=== PATIENT | male | born 1950 | race Hispanic/Latino ===

== ENCOUNTER 2020-10-24 12:59 | Inpatient (IN) | payer MEDICARE ==
[2020-10-24 14:24] LABS: #Lymphocytes 0.7 thou/uL (1.20-3.40); #Monocytes 0.5 thou/uL (0.11-0.59); #Neutrophils 5.1 thou/uL (1.40-6.50); %Basophils 0.6 % (0.0-1.0); %Eosinophils 0.4 % (0.0-10.0); %Lymphocytes 11.3 % (21.0-51.0); %Neutrophils 79.7 % (42.0-75.0); Hemoglobin 12.5 g/dL (14.0-18.0); Mean Corpuscular HGB CONC 33.9 g/dL (32.0-36.0); Mean Corpuscular Hemoglobin 32.8 pg (27.0-31.0); Mean Corpuscular Volume 96.8 fL (78.0-98.0); Mean Platelet Volume 6.3 fL (7.4-10.4); Platelet Count 321 thou/uL (130-400); Red Blood Cell (RBC) Count 3.82 mill/uL (4.70-6.10); White Blood Cell (WBC) Count 6.4 thou/uL (4.8-10.8)
[2020-10-24 14:45] LABS: ALT (SGPT) 16 U/L (8-55); AST (SGOT) 57 U/L (5-34); Albumin 4.6 g/dL (3.4-4.8); Alkaline Phosphatase 80 U/L (40-110); Anion Gap 16 mmol/L (10-20); BUN (Urea Nitrogen) 20 mg/dL (8.4-25.7); Bilirubin, Total 0.5 mg/dL (0.2-1.2); Calc. Creatinine Clearance 0 mL/min (70-130); Calcium 9.7 mg/dL (7.8-10.44); Carbon Dioxide 21 mmol/L (23-31); Chloride 94 mmol/L (98-107); Globulin 2.8 g/dL (2.4-3.5); Glucose 109 mg/dL (80-115); Potassium 5.1 mmol/L (3.5-5.1); Protein, Total 7.4 g/dL (5.8-8.1); Sodium 126 mmol/L (136-145)
[2020-10-24] MEDS ORDERED: HYDROcodone/Acetaminophen 5/325 mg Tablet PO PRN (16:05)
[2020-10-24] MEDS ORDERED: Senokot S 8.6-50 MG TAB PO PRN (16:05)
[2020-10-24 23:55] LABS: SARS-CoV-2 PCR by NAA Not Detected (NotDetected)
[2020-10-25] MEDS ORDERED: Potassium Chloride 20 MEQ TAB PO SCH (00:15)
[2020-10-25] MEDS: Sodium Chloride 0.9% 1,000 ML IV SCH ×2 (00:57→14:41)
[2020-10-25 06:20] LABS: #Lymphocytes 0.7 thou/uL (1.20-3.40); #Monocytes 0.6 thou/uL (0.11-0.59); %Basophils 0.3 % (0.0-1.0); %Eosinophils 0.1 % (0.0-10.0); %Lymphocytes 10.8 % (21.0-51.0); %Monocytes 9.8 % (0.0-10.0); Hemoglobin 12.5 g/dL (14.0-18.0); Mean Corpuscular HGB CONC 34.9 g/dL (32.0-36.0); Mean Corpuscular Hemoglobin 34.1 pg (27.0-31.0); Mean Corpuscular Volume 97.8 fL (78.0-98.0); Mean Platelet Volume 6.6 fL (7.4-10.4); Platelet Count 276 thou/uL (130-400); RBC Distribution Width 12.2 % (11.5-14.5); Red Blood Cell (RBC) Count 3.67 mill/uL (4.70-6.10); White Blood Cell (WBC) Count 6.3 thou/uL (4.8-10.8)
[2020-10-25 06:27] LABS: Bacteria/HPF None Seen HPF (None Seen); Bilirubin Negative (Negative); Blood, Urine Negative (Negative); Clarity Clear (Clear); Glucose, Urine (Dipstick) Normal (Negative); Ketone, Urine Trace mg/dL (Negative); Leukocyte Negative Leu/uL (Negative); Nitrite Negative (Negative); Protein, Urine (Dipstick) Negative (Neg-Trace); RBC/HPF 0-3 HPF (0-3); Specific Gravity, Urine 1.008 (1.002-1.036); Squamous Epithelial None Seen HPF (0-3); Urobilinogen Normal mg/dL (Less than 2); WBC/HPF None Seen HPF (0-3); pH, Urine 6.5 (5.0-9.0)
[2020-10-25 06:30] LABS: Urine Culture Reflex No No
[2020-10-25 06:51] LABS: ALT (SGPT) 50 U/L (8-55); AST (SGOT) 44 U/L (5-34); Albumin 4.2 g/dL (3.4-4.8); Alkaline Phosphatase 73 U/L (40-110); Anion Gap 16 mmol/L (10-20); BUN (Urea Nitrogen) 15 mg/dL (8.4-25.7); Bilirubin, Total 0.4 mg/dL (0.2-1.2); Calc. Creatinine Clearance 82 mL/min (70-130); Calcium 9.4 mg/dL (7.8-10.44); Carbon Dioxide 16 mmol/L (23-31); Chloride 104 mmol/L (98-107); Globulin 2.8 g/dL (2.4-3.5); Glucose 98 mg/dL (80-115); Potassium 4.6 mmol/L (3.5-5.1); Sodium 131 mmol/L (136-145)
[2020-10-25] MEDS: guaiFENesin ER 600 MG TAB PO SCH ×2 (11:11→21:42)
[2020-10-25] MEDS: Enoxaparin Sodium 40 MG/0.4 ML SYRINGE SC SCH (11:11)
[2020-10-25] MEDS: Entacapone 200 mg Tablet PO SCH ×3 (14:41→21:42)
[2020-10-25] MEDS: Carbidopa/Levodopa 25-250 mg Tablet PO SCH ×3 (14:41→21:42)
[2020-10-25] MEDS: Indomethacin 25 mg Capsule PO SCH (21:42)
[2020-10-25] MEDS: Lisinopril 10 MG TAB PO SCH (21:45)
[2020-10-26] MEDS: Sodium Chloride 0.9% 1,000 ML IV SCH ×3 (04:12→17:21)
[2020-10-26 06:02] LABS: #Lymphocytes 0.8 thou/uL (1.20-3.40); #Monocytes 0.4 thou/uL (0.11-0.59); #Neutrophils 3.5 thou/uL (1.40-6.50); %Basophils 0.1 % (0.0-1.0); %Eosinophils 0.9 % (0.0-10.0); %Lymphocytes 16.5 % (21.0-51.0); %Monocytes 9.2 % (0.0-10.0); %Neutrophils 73.2 % (42.0-75.0); Hemoglobin 11.4 g/dL (14.0-18.0); Mean Corpuscular HGB CONC 35.2 g/dL (32.0-36.0); Mean Corpuscular Hemoglobin 34.6 pg (27.0-31.0); Mean Corpuscular Volume 98.2 fL (78.0-98.0); Mean Platelet Volume 6.4 fL (7.4-10.4); Platelet Count 261 thou/uL (130-400); Red Blood Cell (RBC) Count 3.29 mill/uL (4.70-6.10); White Blood Cell (WBC) Count 4.8 thou/uL (4.8-10.8)
[2020-10-26 06:25] LABS: Phosphorus 2.5 mg/dL (2.3-4.7)
[2020-10-26 06:29] LABS: ALT (SGPT) 15 U/L (8-55); AST (SGOT) 25 U/L (5-34); Alkaline Phosphatase 71 U/L (40-110); Anion Gap 12 mmol/L (10-20); BUN (Urea Nitrogen) 12 mg/dL (8.4-25.7); Bilirubin, Total 0.3 mg/dL (0.2-1.2); Calc. Creatinine Clearance 82 mL/min (70-130); Calcium 9.2 mg/dL (7.8-10.44); Carbon Dioxide 23 mmol/L (23-31); Chloride 104 mmol/L (98-107); Globulin 2.3 g/dL (2.4-3.5); Glucose 117 mg/dL (80-115); Magnesium 1.6 mg/dL (1.6-2.6); Potassium 4.5 mmol/L (3.5-5.1); Protein, Total 6.3 g/dL (5.8-8.1); Sodium 134 mmol/L (136-145)
[2020-10-26] MEDS: guaiFENesin ER 600 MG TAB PO SCH ×2 (08:29→21:31)
[2020-10-26] MEDS: Allopurinol 300 MG TAB PO SCH (08:29)
[2020-10-26] MEDS: Lisinopril 10 MG TAB PO SCH ×2 (08:30→21:31)
[2020-10-26] MEDS: Carbidopa/Levodopa 25-250 mg Tablet PO SCH ×4 (08:30→21:31)
[2020-10-26] MEDS: Entacapone 200 mg Tablet PO SCH ×4 (08:30→21:31)
[2020-10-26] MEDS: Enoxaparin Sodium 40 MG/0.4 ML SYRINGE SC SCH (08:31)
[2020-10-26] MEDS: Indomethacin 25 mg Capsule PO SCH (08:31)
[2020-10-26] MEDS ORDERED: Magnesium Sulfate 4 GM in Sodium Chloride 0.9% 250 ML 250 ML IVPB SCH (08:45)
[2020-10-26] MEDS ORDERED: Polyethylene Glycol 3350 17 GM Packet PO SCH (09:45)
[2020-10-26] MEDS ORDERED: Sodium Chloride 0.9% 1,000 ML IV SCH (21:00)
[2020-10-26] MEDS: Senokot S 8.6-50 MG TAB PO SCH (21:31)
[2020-10-26] MEDS: Bisacodyl 10 MG SUPP PR SCH ×2 (21:32→22:14)
[2020-10-27 06:51] LABS: Anion Gap 13 mmol/L (10-20); BUN (Urea Nitrogen) 14 mg/dL (8.4-25.7); Calc. Creatinine Clearance 85 mL/min (70-130); Calcium 9.1 mg/dL (7.8-10.44); Carbon Dioxide 21 mmol/L (23-31); Chloride 102 mmol/L (98-107); Glucose 107 mg/dL (80-115); Potassium 3.8 mmol/L (3.5-5.1); Sodium 132 mmol/L (136-145)
[2020-10-27] MEDS: Senokot S 8.6-50 MG TAB PO SCH (08:48)
[2020-10-27] MEDS: Allopurinol 300 MG TAB PO SCH (08:48)
[2020-10-27] MEDS: Entacapone 200 mg Tablet PO SCH ×2 (08:48→12:45)
[2020-10-27] MEDS: Lisinopril 10 MG TAB PO SCH (08:48)
[2020-10-27] MEDS: Carbidopa/Levodopa 25-250 mg Tablet PO SCH ×2 (08:48→12:45)
[2020-10-27] MEDS: guaiFENesin ER 600 MG TAB PO SCH (08:49)
[2020-10-27] MEDS ORDERED: Polyethylene Glycol 3350 17 GM Packet PO SCH (09:00)
[2020-10-27] MEDS ORDERED: Indomethacin 25 mg Capsule PO SCH (09:00)
[2020-10-27 10:18] VITALS: BMI 21.7
[2020-10-27 15:49] VITALS: BP 139/70; TEMP 98.2
== END 2020-10-27 15:25 | DRG 643 ==
LOC: ERS 12:59 → T4-A 16:05
PROVIDERS: ADMIT Student in an Organized Health Care Education/Training Program; ATTEND Internal Medicine
DX: E22.2 Syndrome of inappropriate secretion of antidiuretic hormone (principal); G93.41 Metabolic encephalopathy; Z20.822 Contact with and (suspected) exposure to COVID-19; E87.2 Acidosis; R62.7 Adult failure to thrive; F41.9 Anxiety disorder, unspecified; F32.9 Major depressive disorder, single episode, unspecified; E86.0 Dehydration; E83.42 Hypomagnesemia; R13.10 Dysphagia, unspecified; D53.9 Nutritional anemia, unspecified; G20 Parkinson's disease; K21.9 Gastro-esophageal reflux disease without esophagitis; G47.33 Obstructive sleep apnea (adult) (pediatric); M19.90 Unspecified osteoarthritis, unspecified site; I10 Essential (primary) hypertension; M10.9 Gout, unspecified; K59.00 Constipation, unspecified; Z79.4 Long term (current) use of insulin; Z79.899 Other long term (current) drug therapy; Z68.20 Body mass index [BMI] 20.0-20.9, adult
CPT/HCPCS: 36415; 36416; 70450; 80048; 80053; 81001; 82607; 82746; 83735; 84100; 84443; 84484; 85025; 93005; 94760; 95712; 95819; 95957; J1650; J3475; J7050; U0003; U0005